=== PATIENT | male | born 1995 | race Caucasian/White ===

== ENCOUNTER 2017-02-01 07:53 | Emergency (ER) | payer OTHER ==
[~2017-02-01] VITALS: Ht 172.7 cm; Wt 81.7 kg
[~2017-02-01 07:53] MED LIST: TYLENOL
[2017-02-01 08:10] VITALS: BP 142/93
--- NOTE | 2017-02-01 08:14 | NUR ---
PT AMBULATES TO BED 12
--- NOTE | 2017-02-01 08:19 | NUR ---
PATIENT PRESENTS TO ED WITH C/O PRODUCTIVE COUGH X 3 DAYS WITH NOSE BLEED STARTING YESTERDAY; SORE THROAT /10, CHEST PAIN WHEN COUGHING; DENIES DIZZINESS OR N/V/D; SKIN IS PINK/WARM/DRY; AAOX4 WITH EVEN AND STEADY GAIT; LUNGS CLEAR BL; HR EVEN AND REGULAR; PT DENIES ANY FEVER OR SOB AT THIS TIME; PATIENT STATES PAIN OF 7/10 AT THIS TIME;PATIENT POSITIONED FOR COMFORT; HOB ELEVATED; BEDRAILS UP X2; BED DOWN. ER MD MADE AWARE OF PT STATUS.
--- NOTE | 2017-02-01 08:24 | NUR ---
DR ALEGRE AT BEDSIDE.
[2017-02-01 08:40] VITALS: BP 138/87
--- NOTE | 2017-02-01 08:40 | NUR ---
Patient discharged with v/s stable. Written and verbal after care instructions given and explained. Patient alert, oriented and verbalized understanding of instructions. Ambulatory with steady gait. All questions addressed prior to discharge. ID band removed. Patient advised to follow up with PMD. Rx of FLONASE, PROMETHAZINE AND AZITRHROMYCIN given. Patient educated on indication of medication including possible reaction and side effects. Opportunity to ask questions provided and answered.
== END 2017-02-01 08:40 | disposition home or self-care (01) ==
LOC: MED 07:53
DX: J02.8 Acute pharyngitis due to other specified organisms (principal); B96.89 Other specified bacterial agents as the cause of diseases classified elsewhere; R03.0 Elevated blood-pressure reading, without diagnosis of hypertension; R09.81 Nasal congestion; F17.210 Nicotine dependence, cigarettes, uncomplicated
CPT/HCPCS: 99283

== ENCOUNTER 2017-02-09 14:14 | Emergency (ER) | payer OTHER ==
[~2017-02-09] VITALS: Ht 172.7 cm; Wt 81.6 kg
[2017-02-09 16:01] VITALS: BP 147/93
[2017-02-09] MEDS ORDERED: [UNRECOGNIZED DRUG - OTHER] (16:06)
[2017-02-09] MEDS ORDERED: AZITHROMYCIN 250 MG (16:06)
[2017-02-09] MEDS ORDERED: FLUTICASONE SPR 50MCG (16:06)
--- NOTE | 2017-02-09 18:02 | NUR ---
21/M BIB SELF FOR COUGH X1WK. ALSO C/O CHILLS. STS SEEN HERE ON THE 02/01, DX VIRAL PHARYNGITIS, RX PROMETHAZINE, ZPACK AND FLUTICASONE. REPORTS NOT HELPING AND NOT GETTING ANY BETTER. LS-CHARLES VIANCA BASES, ON RA @97%. DENIES ANY CP /FEVER/CHILLS. AWAITING TO SEE ER .
--- NOTE | 2017-02-09 18:06 | NUR ---
DR ALEGRE IN ROOM FOR EXAM
--- NOTE | 2017-02-09 18:36 | NUR ---
MEDICATED ORDERED, WILL MONITOR FOR ANY ADVERSE SIDE EFFCTS.
[2017-02-09] MEDS ORDERED: KETOROLAC 60 MG/2 ML VIAL IM ONE (18:40)
[2017-02-09 18:44] VITALS: BP 129/86
--- NOTE | 2017-02-09 18:46 | NUR ---
Patient discharged with v/s stable. Written and verbal after care instructions given and explained. Patient alert, oriented and verbalized understanding of instructions. Ambulatory with steady gait. All questions addressed prior to discharge. ID band removed. Patient advised to follow up with PMD. Rx of PROMETHAZINE WITH CODEINE given. Patient educated on indication of medication including possible reaction and side effects. Opportunity to ask questions provided and answered.
== END 2017-02-09 18:44 | disposition home or self-care (01) ==
LOC: MED 14:14
DX: J06.9 Acute upper respiratory infection, unspecified (principal); R03.0 Elevated blood-pressure reading, without diagnosis of hypertension
CPT/HCPCS: 96372; 99283; J1885

== ENCOUNTER 2019-11-28 11:11 | Emergency (ER) | payer OTHER ==
[~2019-11-28] VITALS: Ht 171.4 cm; Wt 78.9 kg
[~2019-11-28 11:11] MED LIST changes: +AZITHROMYCIN 250 MG; +FLUTICASONE SPR 50MCG; +[UNRECOGNIZED DRUG - OTHER]
[2019-11-28 11:13] VITALS: BP 150/90
--- NOTE | 2019-11-28 11:18 | NUR ---
pt amb to bed 12
--- NOTE | 2019-11-28 11:25 | NUR ---
PATIENT PRESENTS TO ED WITH RIGHT EAR PAIN X2 DAYS, DENIES ANY INJURY, PT STATES HE CLEANS HIS EARS WITH QTIPS, BUT DOES NOT CLEAN INSIDE OF EAR CANAL . DENIES ANY DRAINAGE AT THIS TIME. NO DRAINAGE OR REDNESS OBSERVED. PT STATES HEARING IS ALTERED ON RIGHT EAR, DENIES ANY THROAT PAIN OR JAW PAIN. PAIN IS SHARP IN CHARACTER, PT DENIES ANY PAIN ON OUTER EAR . DENIES N/V/D; SKIN IS PINK/WARM/DRY; AAOX4 WITH EVEN AND STEADY GAIT; LUNGS CLEAR BL; HR EVEN AND REGULAR; PT DENIES ANY FEVER, CP, SOB, OR COUGH AT THIS TIME; PATIENT STATES PAIN OF 3/10 AT THIS TIME; VSS; PATIENT POSITIONED FOR COMFORT; HOB ELEVATED; BEDRAILS UP X2; BED DOWN. ER MD MADE AWARE OF PT STATUS.
[2019-11-28 11:46] VITALS: BP 150/90
--- NOTE | 2019-11-28 11:47 | NUR ---
Patient discharged with v/s stable. Written and verbal after care instructions given and explained. Patient alert, oriented and verbalized understanding of instructions. Ambulatory with steady gait. All questions addressed prior to discharge. ID band removed. Patient advised to follow up with PMD. Rx of AMOXICILLIAN AND MOTRIN given. Patient educated on indication of medication including possible reaction and side effects. Opportunity to ask questions provided and answered.
== END 2019-11-28 11:47 | disposition home or self-care (01) ==
LOC: MED 11:11
DX: H66.91 Otitis media, unspecified, right ear (principal); Z79.899 Other long term (current) drug therapy
CPT/HCPCS: 99283

== ENCOUNTER 2020-04-28 21:10 | Emergency (ER) | payer OTHER ==
[~2020-04-28] VITALS: Ht 172.7 cm; Wt 78.9 kg
[2020-04-28 21:17] VITALS: BP 120/90
--- NOTE | 2020-04-28 21:19 | NUR ---
TO LOBBY A/W BED AMBULATORY
--- NOTE | 2020-04-28 21:55 | NUR ---
PATIENT BIB SELF C/O GENERALIZED ABDOMINAL PAIN 03/25, DESCRIBED "BOTHERSOME". PER PATIENT SYMPTOMS BEGAN 2 HOURS AGO. DENIES N/V/D. PT STATES "THIS HAPPENS OFTEN, IT IS PROBABLY BECAUSE OF MY BAD DIET, I JUST WANTED A SECOND OPINION." SEE FULL ASSESSMENT FOR DETAILS. MED HX: NONE ALLERGIES: NONE
--- NOTE | 2020-04-28 22:46 | NUR ---
Dr. Carter examining patient.
--- NOTE | 2020-04-28 23:04 | NUR ---
PATIENT TAKEN TO XRAY.
--- NOTE | 2020-04-28 23:11 | NUR ---
PT RETURN FROM XRAY
[2020-04-29 00:04] VITALS: BP 120/90
--- NOTE | 2020-04-29 00:09 | NUR ---
Patient discharged with v/s stable. Written and verbal after care instructions given and explained. Patient verbalized understanding. Ambulatory with steady gait. All questions addressed prior to discharge. Advised to follow up with PMD.
== END 2020-04-29 00:04 | disposition home or self-care (01) ==
LOC: MED 21:10
DX: R10.84 Generalized abdominal pain (principal); Z79.899 Other long term (current) drug therapy
CPT/HCPCS: 74022; 99283